=== PATIENT | male | born 1980 | race Two or more races ===

== ENCOUNTER 2021-05-26 12:34 | Emergency (ER) | payer BC ==
[~2021-05-26] VITALS: Ht 180.3 cm; Wt 90.3 kg
[2021-05-26 16:30] VITALS: BP 145/70
[2021-05-26] MEDS ORDERED: methylPREDNISolone SOD SUCC 125 MG/2 ML VL IM ONE (17:00)
== END 2021-05-26 17:16 | disposition home or self-care (01) ==
LOC: ER 12:34
DX: J06.9 Acute upper respiratory infection, unspecified (principal); M25.59 Pain in other specified joint; E03.9 Hypothyroidism, unspecified; Z20.822 Contact with and (suspected) exposure to COVID-19
CPT/HCPCS: 36415; 87426; 96372; 99283; J2930